=== PATIENT | male | born 1975 | race African-American/Black ===

== ENCOUNTER 2017-03-09 17:48 | Emergency (ER) | payer SELFPAY ==
[~2017-03-09] VITALS: Ht 177.8 cm; Wt 81.6 kg
[2017-03-09] MEDS ORDERED: NAPR500T PO (18:24)
--- NOTE | 2017-03-09 18:25 | PHYS DOC ---
Adult General Chief Complaint Chief Complaint: [facility] HPI Patient is a 41 year old male presents to the emergency department with a two- month history of right knee pain. No known injury. Review of Systems Review of Systems Constitutional: Denies fever or chills [] Eyes: Denies change in visual acuity, redness, or eye pain [] HENT: Denies nasal congestion or sore throat [] Respiratory: Denies cough or shortness of breath [] Cardiovascular: No additional information not addressed in HPI [] GI: Denies abdominal pain, nausea, vomiting, bloody stools or diarrhea [] : Denies dysuria or hematuria [] Musculoskeletal: Right knee pain. Integument: Denies rash or skin lesions [] Neurologic: Denies headache, focal weakness or sensory changes [] Endocrine: Denies polyuria or polydipsia [] Physical Exam Physical Exam Constitutional: Well developed, well nourished, no acute distress, non-toxic appearance. [] HENT: Normocephalic, atraumatic, bilateral external ears normal, oropharynx moist, no oral exudates, nose normal. [] Eyes: PERRLA, EOMI, conjunctiva normal, no discharge. [] Neck: Normal range of motion, no tenderness, supple, no stridor. [] Cardiovascular:Heart rate regular rhythm, no murmur [] Lungs & Thorax: Bilateral breath sounds clear to auscultation [] Abdomen: Bowel sounds normal, soft, no tenderness, no masses, no pulsatile masses. [] Skin: Warm, dry, no erythema, no rash. [] Back: No tenderness, no CVA tenderness. [] Extremities: Right lower extremity right hip and right ankle exam unremarkable. Right knee with mild tenderness medial, no bony tenderness, with a small effusion palpated. No laxity on anterior drawer, negative valgus varus stress test. Right calf is supple. Negative Homans sign. Neurologic: Alert and oriented X 3, normal motor function, normal sensory function, no focal deficits noted. [] Psychologic: Affect normal, judgement normal, mood normal. [] EKG EKG [] Radiology/Procedures Radiology/Procedures [] Course & Med Decision Making Course & Med Decision Making Pertinent Labs and Imaging studies reviewed. (See chart for details) []Visually placed in Tray bandage and given anti-inflammatory. Orthopedic follow- up. Dragon Disclaimer Dragon Disclaimer This electronic medical record was generated, in whole or in part, using a voice recognition dictation system. Departure Departure Impression: Primary Impression: Right knee pain Disposition: 01 HOME, SELF-CARE Condition: STABLE Referrals: ALYSSA SANDOVAL II, MD Patient Instructions: Knee Effusion Scripts Naproxen (NAPROSYN) 500 Mg Tablet 500 MG PO BID, #20 TAB Prov: TIERNEY CROSS APRN 03/09/17 Problem Qualifiers Primary Impression: Right knee pain Chronicity: acute Qualified Codes: M25.561 - Pain in right knee TIERNEY CROSS APRN Mar 09, 2017 18:25
[2017-03-09 18:39] VITALS: BP 178/88
== END 2017-03-09 18:46 | disposition home or self-care (01) ==
LOC: ER 17:48
DX: M25.561 Pain in right knee (principal)
CPT/HCPCS: 99283